=== PATIENT | female | born 1995 | race Caucasian/White ===

== ENCOUNTER → 2016-09-16 | Outpatient (CLI) | payer BC ==
[~2016-09-16] MED LIST: TETR250C3 PO
--- NOTE | 2016-09-16 16:50 | DIAGNOSTIC IMAGING REPORT ---
RIGHT KNEE 1 OR 2 VIEWS ROUTINE CLINICAL HISTORY: PAIN IN UNSPECIFIED KNEE M25.569 Right pain COMPARISON: None. DISCUSSION: The bones and joint spaces appear intact. There is no evidence of fracture, dislocation or bony disease. There is no evidence for soft tissue swelling. IMPRESSION: Negative study. Electronically signed by: Nigel Washington M.D. 09/16/2016 4:48 PM Dictated Date/Time: 09/16/2016 4:48 PM
== END | disposition home or self-care (01) ==
LOC: C.RAD1850 16:19
PROVIDERS: ATTEND Family Medicine
DX: M25.561 Pain in right knee (principal)

== ENCOUNTER → 2016-11-12 | Outpatient (CLI) | payer BC ==
--- NOTE | 2016-11-12 15:43 | DIAGNOSTIC IMAGING REPORT ---
RIGHT KNEE MRI HISTORY: Right knee pain. COMPARISON STUDY: Right knee 09/16/2016. TECHNIQUE: Multiplanar multisequence MRI of the right knee was performed according to standard department protocol without the use of contrast. FINDINGS: Menisci: The medial and lateral menisci are intact. Ligaments: The anterior and posterior cruciate ligaments are intact. The medial and lateral collateral ligaments are normal in appearance. Extensor mechanism: The quadriceps tendon and patellar ligament are intact. Articular cartilage and bone: The articular cartilage is intact. No fracture or dislocation. Small focal area of marrow edema within the medial aspect of the medial femoral condyle. Joint effusion: None. Soft tissues: Mild prepatellar soft tissue edema. Mild edema lateral to the lateral femoral condyle and deep to the distal iliotibial band. This is consistent with iliotibial band friction syndrome. IMPRESSION: 1. No evidence for meniscal tear. 2. Mild edema lateral to the lateral femoral condyle and deep to the distal iliotibial band. This is consistent with iliotibial band friction syndrome. 3. No fracture or dislocation. Small focal area of marrow edema within the medial aspect of the medial femoral condyle. This may represent a small bone contusion. Electronically signed by: Manuel Mendosa M.D. 11/12/2016 3:41 PM Dictated Date/Time: 11/12/2016 3:33 PM
== END | disposition home or self-care (01) ==
LOC: C.MRI 14:37
PROVIDERS: ATTEND Physician Assistant
DX: S89.81XA Other specified injuries of right lower leg, initial encounter (principal); M76.51 Patellar tendinitis, right knee; M71.21 Synovial cyst of popliteal space [Baker], right knee; X58.XXXA Exposure to other specified factors, initial encounter